=== PATIENT | female | born 1990 | race African-American/Black ===

== ENCOUNTER 2016-04-11 22:13 | Emergency (ER) | payer BC ==
[2016-04-11 22:33] VITALS: BP 139/55
[2016-04-11] MEDS ORDERED: methylPREDNISolone 125 MG* 2 ML VIAL IM ONE (23:16)
[2016-04-11] MEDS ORDERED: diPHENhydraMINE IV* 50 MG/ML 1 ml VIAL (BENADRYL) IM ONE (23:16)
[2016-04-11] MEDS ORDERED: methylPREDNISolone 125 MG* 2 ML VIAL ONE (23:25)
--- NOTE | 2016-04-12 00:30 | UC ---
Mckay Monaco Erika, scribed for Maggie Giang DO on 04/11/16 at 2303 . Skin Complaint HPI - HPI Summary HPI Summary: Patient is a 25-year-old female presenting to [facility] with a CC of a swollen lower lip starting around 19:00 today. Pt reports that she was kissing her boyfriend, and he may have bit her lower lip. Swelling began after that incident. Pt reports that swelling was minor at first, but has been gradually worsening. She denies pain, but states she feels a fullness in her lip. She denies all other symptoms, including lightheadedness and SOB. Pt takes oral contraceptives - mononessa. She denies any new environmental exposures. She denies any similar symptoms in the past. - History of Current Complaint Chief Complaint: UCSkin Stated Complaint: SWOLLEN LIP Hx Obtained From: Patient Hx Last Menstrual Period: NOW Onset/Duration: Gradual Onset, Lasting Hours, Still Present Timing: Constant Onset Severity: Mild Current Severity: Mild Pain Intensity: 0 Pain Scale Used: 0-10 Numeric Location: Other - lip Character: Swelling Aggravating: Nothing Alleviating: Nothing Associated Signs & Symptoms: Positive: Negative - Allergy/Home Medications Allergies/Adverse Reactions: Allergies Allergy/AdvReac Type Severity Reaction Status Date / Time No Known Allergies Allergy Verified 04/11/16 22:33 Home Medications: Home Medications Control* 04/11/16 [History] Review of Systems Constitutional: Negative Skin: Negative Eyes: Negative ENT: Other - lower lip swelling Respiratory: Negative Cardiovascular: Negative Gastrointestinal: Negative Genitourinary: Negative Motor: Negative Neurovascular: Negative Musculoskeletal: Negative Neurological: Negative Psychological: Negative All Other Systems Reviewed And Are Negative: Yes PMH/Surg Hx/FS Hx/Imm Hx - Additional Past Medical History Additional PMH: ulcers - Surgical History Surgical History: Yes Surgery Procedure, Year, and Place: ENDOSCOPY - Family History Known Family History: Positive: Hypertension, Other - hypercholesterolemia - Social History Alcohol Use: None Substance Use Type: None Smoking Status (MU): Never Smoked Tobacco Physical Exam Triage Information Reviewed: Yes Appearance: Well-Appearing, No Pain Distress, Well-Nourished Vital Signs: Initial Vital Signs Temp 98.9 F 04/11/16 22:27 Pulse 75 04/11/16 22:27 Resp 16 04/11/16 22:27 BP 139/55 04/11/16 22:27 Vital Signs Reviewed: Yes Eyes: Positive: Conjunctiva Clear. Negative: Discharge ENT: Positive: Hearing grossly normal, Other: - impressively swollen lower lip. tongue is normal. Negative: Muffled/hoarse voice Neck: Positive: Supple, Nontender Respiratory: Positive: Lungs clear, Normal breath sounds, No respiratory distress, No accessory muscle use Cardiovascular: Positive: RRR, No Murmur Abdomen Description: Positive: Nontender, Soft. Negative: Distended, Guarding Bowel Sounds: Positive: Present Musculoskeletal Exam: Normal Neurological: Positive: Alert, Muscle Tone Normal Psychological Exam: Normal Psychological: Positive: Age Appropriate Behavior Skin Exam: Other - warm, dry, normal color Re-Evaluation - Re-Evaluation First Eval Re-Evaluation Time: 00:00 Change: Unchanged Second Eval Re-Evaluation Time: 00:15 Change: Unchanged Course/Dx - Course Course Of Treatment: PT TOLD TO STOP MONONESSA, GO TO ED IF SX WORSEN OR IF SHE DEVELOPS ANY SOB,CP,DIZZINESS/LIGHTHEAEDNESS, CONFUSION, N/V/D/ABD PAIN, HIVES - Differential Diagnoses - Skin Complaint Differential Diagnoses: Allergic Reaction, Angioedema, Cellulitis, Urticaria - Diagnoses Provider Diagnoses: ALLERGIC REACTION Discharge - Discharge Plan Condition: Stable Disposition: HOME Prescriptions: predniSONE TAB* [Deltasone TAB*] 40 mg PO DAILY #8 tab Patient Education Materials: Diphenhydramine (By mouth), General Allergic Reaction (ED) Referrals: No Primary Care Phys,NOPCP [Primary Care Provider] - Additional Instructions: STOP TAKING NEW CONTROL PILL, MONONESSA Swollen lips Swollen lips, or lip oedema, is when one or both lips enlarge or distend beyond their normal size. This swelling is caused by a build-up of fluid, or inflammation inside the lip tissue. It can have many causes, including injury, illness, certain medicines or allergies. Swollen lips can be a sign of anaphylaxis a severe allergic reaction which requires immediate medical attention. In less serious cases, swelling may appear and disappear quickly, for example after chapping or sunburn. Swelling that develops over time and lasts longer may be a sign of infection or a more serious inflammation or condition. Symptoms of swollen lips Swollen or fat lips can be debilitating and painful. In some cases, people may have difficulty: Eating Drinking Talking Opening their mouth Other symptoms that may occur along with lip swelling include: Blisters Chapping Lip discolouration Fatigue Pain High temperature or chills Headache Causes of swollen lips Swollen lips may have a range of different causes, from mild conditions to more serious disorders, including infections, allergy, inflammation, injuries or an underlying medical condition. Allergic reactions Swollen lips are a common symptom of an allergic reaction. Contact with any allergen, from pet dander to certain foods or the wrong lip care product, can cause the immune system to react and protect itself. Swelling is one of the effects. Anaphylaxis is a severe and potentially life-threatening form of allergic reaction that can cause swollen lips. It requires immediate medical attention. Symptoms may include: Lip swelling Swelling in the mouth or throat Hives (nettle rash) Itchy eyes or face Swallowing or breathing difficulties If you experience any of these symptoms get emergency medical attention immediately. The condition can develop quickly, triggering an increased heart rate, weakness, a drop in blood pressure, shock and, ultimately, unconsciousness and . Food allergies Common triggers of swollen lips include allergies to foods including: Nuts Shellfish Dairy products Egg whites Sesame seeds Other reactions that can trigger swollen lips include: Wasp or bee stings Exercise Latex Some medicines Pollens or other inhaled allergens Angioedema Swollen lips are a common symptom of angioedema. This is a swelling that is in the deeper layers of the skin that usually affects the eyes and lips. Angioedema is a quite common condition affecting between 10 - 20% of people during their lifetime. Like anaphylaxis, angioedema may be caused by an allergic reaction. Food allergies are the chief cause of allergic angioedema, affecting between 5 - 8% of children and 1 - 2% of adults. Ann food triggers include shellfish, nuts , eggs and milk. Other triggers of angioedema include: Pet hair or animal dander Heat, cold or sunlight Insect bites Certain medicines such as antibiotics, nonsteroidal anti-inflammatory drugs ( NSAIDs) and blood pressure medicines ( ZELALEM inhibitors) Pollen Hereditary angioedema is a genetic form of angioedema that can also cause swollen lips. Its caused by a faulty gene and is rare, affecting between 1 in 10 ,000 and 1 in 50,000 people. FOR NOW, WE WILL TREAT THIS AN ALLERGIC REACTION. CORTICOSTEROID MEDICATION: You have been given a medicine of the cortisone class. This medication is used to control inflammation or allergy. It is usually only given for a short period of time, until the acute process subsides. There are usually no side effects from short-term use of cortisone-like medications. Some persons feel an increased sense of well-being and are not sleepy at bedtime. Long-term use of cortisone medications is best avoided, unless required for a severe condition. If your condition does not remit, or relapses after the course of corticosteroid medication, you should consult your physician. Contact the physician if you develop lightheadedness, black or tarry stools , swelling of the legs, or significant rapid change in weight. TAKE BENADRYL ON A SCHEDULED BASIS FOR THE NEXT 3 DAYS. FOLLOW-UP CARE: You should establish with a private physician for follow-up care NO LATER THAN Thursday04/14/16. If you are unable to get a timely appointment, or if you are worsening, call us or return for re-evaluation. An additional resource available to assist in finding the appropriate physician for your health care needs is the [facility]. You may contact them by calling [phone]. The documentation as recorded by the Mckay vega Erika accurately reflects the service I personally performed and the decisions made by me, Maggie Giang DO.
== END 2016-04-12 00:15 | disposition home or self-care (01) ==
LOC: UCEAST 22:13
DX: T78.40XA Allergy, unspecified, initial encounter (principal); X58.XXXA Exposure to other specified factors, initial encounter
CPT/HCPCS: 96372; 99202; G0463; J1200; J2930